=== PATIENT | male | born 2000 | race American Indian/Alaskan Native ===

== ENCOUNTER 2021-08-30 19:05 | Emergency (ER) | payer SELFPAY ==
[2021-08-30 21:03] VITALS: BP 127/65
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
[2021-08-30] MEDS ORDERED: IBUPROFEN 800 MG TAB PO ONE (23:45)
== END 2021-08-31 00:25 | disposition home or self-care (01) ==
LOC: ED 19:05
DX: S16.1XXA Strain of muscle, fascia and tendon at neck level, initial encounter (principal); S39.012A Strain of muscle, fascia and tendon of lower back, initial encounter; V49.49XA Driver injured in collision with other motor vehicles in traffic accident, initial encounter; Y93.89 Activity, other specified; Y92.89 Other specified places as the place of occurrence of the external cause; Y99.8 Other external cause status
CPT/HCPCS: 72040; 72100; 99283